=== PATIENT | female | born 1950 | race Caucasian/White ===

== ENCOUNTER 2019-03-07 07:54 | Inpatient (IN) | payer MEDICARE ==
[2019-03-04 11:11] VITALS: BMI 27.3
[2019-03-07 08:56] LABS: #Basophils 0.1 thou/uL (0.0-0.2); #Eosinphils 0.2 thou/uL (0.0-0.7); #Lymphocytes 2.8 thou/uL (1.20-3.40); #Monocytes 0.5 thou/uL (0.11-0.59); #Neutrophils 4.1 thou/uL (1.40-6.50); %Basophils 0.7 % (0.0-1.0); %Eosinophils 3.2 % (0.0-10.0); %Neutrophils 53.1 % (42.0-75.0); Hemoglobin 14.4 g/dL (12.0-16.0); Mean Corpuscular HGB CONC 33.8 g/dL (32.0-36.0); Mean Corpuscular Hemoglobin 34.2 pg (27.0-31.0); Mean Platelet Volume 7.2 fL (7.4-10.4); Platelet Count 166 thou/uL (130-400); RBC Distribution Width 12.2 % (11.5-14.5); White Blood Cell (WBC) Count 7.7 thou/uL (4.8-10.8)
[2019-03-07 09:09] LABS: Anion Gap 13 mmol/L (10-20); BUN (Urea Nitrogen) 8 mg/dL (9.8-20.1); Calc. Creatinine Clearance 100 mL/min (70-130); Calcium 9.7 mg/dL (7.8-10.44); Carbon Dioxide 24 mmol/L (23-31); Chloride 102 mmol/L (98-107); Estimated GFR-MDRD Greater than 90; Glucose 150 mg/dL (80-115); Sodium 135 mmol/L (136-145)
[2019-03-07] MEDS ORDERED: Sodium Chloride 0.9% 10 ML ONE (09:48)
[2019-03-07] MEDS ORDERED: Fentanyl 100 MCG/2 ML VIAL ONE ×4 (10:06→12:51)
[2019-03-07] MEDS ORDERED: Lidocaine 2% Jelly 5 ML TUBE ONE (10:06)
[2019-03-07] MEDS ORDERED: Ondansetron HCl/PF 4 MG/2 ML Vial IVP PRN (11:41)
[2019-03-07] MEDS ORDERED: Promethazine HCl 25 MG/ML VIAL SLOW IVP PRN (11:41)
[2019-03-07] MEDS ORDERED: Promethazine HCl 25 MG/ML VIAL IM PRN (11:41)
--- NOTE | 2019-03-07 11:54 | OP ---
DATE OF PROCEDURE: 03/07/2019 AUTOMATION ENGINEER: Jb March PA-C PROCEDURES PERFORMED: L5-S1 laminectomy, posterolateral arthrodesis, pedicle screw instrumentation L5-S1, demineralized bone matrix, and local morselized autograft. DESCRIPTION OF PROCEDURE: The patient was brought to the operating room and intubated. She was rolled in a prone position on gel-filled chest rolls. An incision was made exposing L5 and S1 bilaterally and the level was confirmed by x-ray. We performed modest bilateral L5-S1 laminectomies, then placed pedicle screws at L5 and S1 bilaterally using lateral fluoroscopic guidance. The nino was secured between the screws. Mild distraction was applied. Then, the rods were secured with nuts, which were final tightened. The wound was then extensively irrigated. MAC hemostasis was secured. A combination of demineralized bone matrix and local morselized autograft were laid over the lamina and posterolateral surfaces for the purpose of arthrodesis. Vancomycin powder was applied and the wound was then closed in anatomic layers. Job ID: [id number]
[2019-03-07] MEDS ORDERED: Ondansetron PF 4 MG/2 ML Vial IM PRN (13:48)
[2019-03-07] MEDS ORDERED: diphenhydrAMINE 50 MG/ML VIAL IVP PRN (13:48)
[2019-03-07] MEDS ORDERED: Milk Of Magnesia 30 ML UDCUP PO PRN (13:48)
[2019-03-07] MEDS ORDERED: traMADol HCl 50 MG TAB PO PRN (13:48)
[2019-03-07] MEDS ORDERED: Mag-Al 1200 mg/1200 mg/30 ML UDCUP PO PRN (13:48)
[2019-03-07] MEDS ORDERED: Acetaminophen/Codeine 30-300mg Tablet PO PRN ×2 (13:48)
[2019-03-07] MEDS ORDERED: diphenhydrAMINE 25 MG CAP PO PRN (13:48)
[2019-03-07] MEDS ORDERED: Morphine 4 MG/ML VIAL SLOW IVP PRN (13:48)
[2019-03-07] MEDS ORDERED: Morphine 2 MG/ML SYRINGE SLOW IVP PRN (13:50)
[2019-03-07] MEDS ORDERED: Rocuronium Bromide 10 MG/ML (10ML VIAL) ONE (14:34)
[2019-03-07] MEDS ORDERED: Glycopyrrolate 0.2 MG/ML 5 ML SYRINGE ONE (14:34)
[2019-03-07] MEDS ORDERED: ePHEDrine 50 MG/ML VIAL ONE (14:34)
[2019-03-07] MEDS ORDERED: PROPOFOL 200 MG/20 ML VIAL ONE (14:34)
[2019-03-07] MEDS ORDERED: Ketorolac Tromethamine 30 MG/ML VIAL ONE (14:34)
[2019-03-07] MEDS ORDERED: Lidocaine 1% PF 5 ML VIAL ONE (14:34)
[2019-03-07] MEDS ORDERED: Ondansetron PF 4 MG/2 ML Vial ONE (14:34)
[2019-03-07] MEDS: traMADol HCl 50 MG TAB PO PRN ×2 (14:40→20:36)
[2019-03-07] MEDS: Sodium Chloride 0.9% 1,000 ML IV SCH (14:41)
[2019-03-07] MEDS: metFORMIN 500 MG TAB PO SCH (18:21)
[2019-03-07] MEDS: CEFAZOLIN 2 GM in Premix Bag 1 BAG IVPB SCH (18:22)
[2019-03-07] MEDS: Gabapentin 400 MG CAP PO SCH ×2 (18:22→20:36)
[2019-03-07] MEDS: tiZANidine HCl 4 MG TAB PO PRN (20:36)
[2019-03-07] MEDS ORDERED: PRAMIPEXOLE PO SCH (21:00)
[2019-03-07] MEDS ORDERED: Lisinopril 10 MG TAB PO SCH (21:00)
[2019-03-08] MEDS: tiZANidine HCl 4 MG TAB PO PRN ×2 (02:09→08:51)
[2019-03-08] MEDS: traMADol HCl 50 MG TAB PO PRN ×2 (02:09→08:48)
[2019-03-08] MEDS: CEFAZOLIN 2 GM in Premix Bag 1 BAG IVPB SCH (02:10)
[2019-03-08] MEDS: Sodium Chloride 0.9% 1,000 ML IV SCH (03:37)
[2019-03-08] MEDS ORDERED: Dextrose 50% Abboject 50 ML SYRINGE SLOW IVP PRN (07:23)
[2019-03-08] MEDS ORDERED: Dextrose 5% in Water 1,000 ML IV PRN (07:23)
[2019-03-08] MEDS ORDERED: HumaLOG 300 UNITS/3 ML VIAL SC PRN (07:23)
[2019-03-08] MEDS: metFORMIN 500 MG TAB PO SCH (08:50)
[2019-03-08] MEDS: Gabapentin 400 MG CAP PO SCH (08:51)
[2019-03-08 09:17] LABS: Anion Gap 12 mmol/L (10-20); BUN (Urea Nitrogen) 10 mg/dL (9.8-20.1); Calc. Creatinine Clearance 99 mL/min (70-130); Calcium 9.1 mg/dL (7.8-10.44); Carbon Dioxide 23 mmol/L (23-31); Chloride 106 mmol/L (98-107); Estimated GFR-MDRD Greater than 90; Glucose 146 mg/dL (80-115); Potassium 4.1 mmol/L (3.5-5.1); Sodium 137 mmol/L (136-145)
[2019-03-08 11:15] VITALS: BP 108/57; TEMP 98.6
--- NOTE | 2019-03-08 11:24 | PDOC.HOSPP ---
- Subjective Encounter Date: 03/08/19 Encounter Time: 09:30 non-verbal Subjective: Patient in bed eating breakfast. Denies complaints, reports she will most likely go home today. - Objective Vital Signs & Weight: Vital Signs (12 hours) Temp Pulse Resp BP Pulse Ox 03/08/19 11:15 98.6 F 64 16 108/57 L 90 L 03/08/19 07:40 91 L 03/08/19 07:39 99.0 F 67 16 118/62 03/08/19 03:59 98.9 F 74 16 111/62 90 L 03/08/19 00:49 99.6 F 70 16 106/55 L 92 L Weight Weight 72.121 kg I&O: 03/07/19 03/08/19 03/09/19 06:59 06:59 06:59 Intake Total 1000 Balance 1000 Result Diagrams: 03/07/19 08:39 03/08/19 08:39 Additional Labs: Accuchecks 03/07/19 17:46 POC Glucose 141 H Hospitalist ROS - Review of Systems Constitutional: denies: fever, chills, sweats, weakness, malaise, other Eyes: denies: pain, vision change, conjunctivae inflammation, eyelid inflammation, redness, other ENT: denies: ear pain, ear discharge, nose pain, nose discharge, nose congestion , mouth pain, mouth swelling, throat pain, throat swelling, other Respiratory: denies: cough, dry, shortness of breath, hemoptysis, SOB with excertion, pleuritic pain, sputum, wheezing, other Cardiovascular: denies: chest pain, palpitations, orthopnea, paroxysmal noc. dyspnea, edema, light headedness, other Gastrointestinal: denies: nausea, vomiting, abdominal pain, diarrhea, constipation, melena, hematochezia, other Genitourinary: denies: dysuria, frequency, incontinence, hematuria, retention, other Musculoskeletal: reports: back pain Skin: denies: rash, lesions, carlos, bruising, other - Medication Medications: Active Medications Generic Name Dose Route Start Last Admin Trade Name Freq PRN Reason Stop Dose Admin Gabapentin 400 mg 03/07/19 17:00 03/08/19 08:51 Neurontin PO 400 mg QID ROBY Administration Sodium Chloride 1,000 mls @ 75 mls/hr 03/07/19 13:48 03/08/19 03:37 Normal Saline 0.9% IV Not Given .[id number] ROBY Lisinopril 10 mg 03/07/19 21:00 03/07/19 20:36 Zestril PO 10 mg HS ROBY Administration Metformin HCl 1,000 mg 03/07/19 17:00 03/08/19 08:50 Glucophage PO 1,000 mg BID-WM ROBY Administration Morphine Sulfate 2 mg 03/07/19 13:50 03/07/19 18:48 Morphine SLOW IVP 2 mg Q1H PRN Administration .MODERATE BREAKTHROUGH PAIN Sertraline HCl 50 mg 03/08/19 09:00 03/08/19 08:51 Zoloft PO 50 mg DAILY ROBY Administration Tizanidine HCl 4 mg 03/07/19 13:48 03/08/19 08:51 Zanaflex PO 4 mg Q6H PRN Administration MUSCLE SPASM Tramadol HCl 100 mg 03/07/19 13:48 03/08/19 08:48 Ultram PO 100 mg Q6H PRN Administration PAIN (4-6) - Exam Eye: PERRL ENT: normocephalic atraumatic, moist mucosa Neck: supple, no lymphadenopathy Heart: RRR, no murmur Respiratory: CTAB, normal chest expansion Gastrointestinal: soft, non-tender Extremities: no edema Skin: normal turgor, no rashes Neurological: normal sensation to touch, no focal deficits Musculoskeletal: normal tone, normal strength Psychiatric: normal affect Hosp A/P (1) Lumbar back pain Code(s): M54.5 - LOW BACK PAIN Status: Acute (2) Diabetes mellitus Code(s): E11.9 - TYPE 2 DIABETES MELLITUS WITHOUT COMPLICATIONS Status: Chronic (3) Hypertension Code(s): I10 - ESSENTIAL (PRIMARY) HYPERTENSION Status: Chronic (4) Anxiety Code(s): F41.9 - ANXIETY DISORDER, UNSPECIFIED Status: Chronic (5) Neuropathy Code(s): G62.9 - POLYNEUROPATHY, UNSPECIFIED Status: Chronic - Plan old records reviewed/req, PT/OT Patient seen as requested by Dr. Cobb post-op for medical management. Patient had L5-S1 laminectomy on 03/07 Patient is doing well, denies complaints. Reports she just finished with PT walking with assistance. PMH pertinent for DM II, HTN, Anxiety and Neuropathy. Home meds were reviewed. Home meds have been continued and we will follow.
--- NOTE | 2019-03-08 12:26 | DIS ---
DATE OF ADMISSION: 03/07/2019 DATE OF DISCHARGE: 03/08/2019 The patient is a 68-year-old female, recently evaluated in our office for progressive back and leg pain, found to have L5-S1 degenerative disease and bilateral L5 foraminal stenosis. She underwent L5-S1 decompression and fusion on 03/07/2019. Following the surgery, she was transitioned to the Med/Surg floor, where her pain has been well controlled with p.o. medications, she is tolerating a regular diet, and she was voiding appropriately. She had some mild incisional drainage, but the check of her incision shows that it is clean, dry, and intact with some dark red blood on the drainage pad. I did replace the dressing and I have advised her to change the dressing b.i.d. We will follow the patient in 2 weeks. She has been provided with scripts for Keflex. Her pain management physician is managing her pain medications. Job ID: [id number]
--- NOTE | 2019-03-11 09:53 | EKG ---
Test Reason : PREOP Blood Pressure : / mmHG Vent. Rate : 069 BPM Atrial Rate : 069 BPM P-R Int : 136 ms QRS Dur : 078 ms QT Int : 390 ms P-R-T Axes : 068 005 036 degrees QTc Int : 417 ms Normal sinus rhythm Normal ECG No previous ECGs available Confirmed by CORIE BARKER, CARMELA ([id number]) on 03/11/2019 9:52:59 AM Referred By: EDGAR Confirmed By:CARMELA FONTENOT MD
== END 2019-03-08 11:54 | disposition home or self-care (01) | DRG 460 ==
LOC: SURG A 07:54
PROVIDERS: ADMIT Neurological Surgery; ATTEND Neurological Surgery
PROC: 0SG3071 Fusion of Lumbosacral Joint with Autologous Tissue Substitute, Posterior Approach, Posterior Column, Open Approach (ICD-10-PCS; principal; 2019-03-07)
DX: M43.17 Spondylolisthesis, lumbosacral region (principal); M48.061 Spinal stenosis, lumbar region without neurogenic claudication; E11.9 Type 2 diabetes mellitus without complications; G20 Parkinson's disease; M47.9 Spondylosis, unspecified; I10 Essential (primary) hypertension; F41.9 Anxiety disorder, unspecified; Z90.710 Acquired absence of both cervix and uterus; F17.200 Nicotine dependence, unspecified, uncomplicated; G62.9 Polyneuropathy, unspecified
CPT/HCPCS: 36416; 76000; 80048; 85025; 93005; 93010; C1713; C1768; J0690; J2270; J3010; J3370; J3490

== ENCOUNTER 2019-03-31 09:22 | Outpatient (CLI) | payer MEDICARE ==
--- NOTE | 2019-03-31 11:41 | RAD ---
LUMBAR SPINE SERIES 2 VIEWS: Date: 03/31/19 HISTORY: Follow-up surgery. COMPARISON: None. FINDINGS: The bones appear slightly demineralized. Vertebral bodies are normal in height. Minimal disc narrowin g is seen at L4-5. Bilateral pedicle screws are seen at L5-S1 with severe disc space narrowing and sp ondylosis of approximately 6-7 mm. Fairly extensive vascular calcifications are noted. IMPRESSION: Postoperative changes of the spine as described above. POS: [facility]
== END 2019-03-31 09:23 | disposition home or self-care (01) ==
LOC: TBSIIMAG 09:22
PROVIDERS: ATTEND Neurological Surgery
DX: M43.16 Spondylolisthesis, lumbar region (principal); Z98.890 Other specified postprocedural states
CPT/HCPCS: 72100